=== PATIENT | female | born 1995 | race Caucasian/White ===

== ENCOUNTER → 2017-07-03 | Outpatient (CLI) | payer OTHER ==
--- NOTE | 2017-07-03 11:11 | Diagnostic Imaging Report ---
TECHNIQUE: Multiple real-time grayscale images were obtained over the gravid uterus. COMPARISON: None FINDINGS: There are no prior studies available for comparison. There is a single live fetus in breech presentation. heart motion noted and a rate of 138 bpm was recorded. There were no abnormalities identified. The placenta is posterior and there is no previa. The amniotic fluid volume is within normal limits. The growth parameters are fairly uniform. IMPRESSION: 1. There is a single live fetus approximately 20 weeks 4 days gestation + / - 1.5 weeks. EDC is 11/16/2017. 2. There are no abnormalities identified. 3. The growth parameters are fairly uniform. Biometrical measurements are as follows: Biparietal 4.9 cm, age 21 weeks 0 days. Head circumference 17.9 cm, age 20 weeks 3 days. Abdominal circumference 14.8 cm, age 20 weeks 1 days. Femur length 3.3 cm, age 20 weeks 4 days. Sonographic estimate age: 20 weeks 4 days. Sonographic estimated date of delivery: 11/16/17. Estimated Weight: 345 gm (+/- 50 gm). LMP percentile: 63%. heart rate: 138 beats per minute. number: 1 of 1. Dictated by: Dictated on workstation # [id number]
== END ==
LOC: RAD 10:02
PROVIDERS: ATTEND Obstetrics & Gynecology
DX: Z36.89 Encounter for other specified antenatal screening (principal); Z3A.20 20 weeks gestation of pregnancy
CPT/HCPCS: 76805

== ENCOUNTER 2017-11-23 15:58 | Inpatient (IN) | payer OTHER ==
[~2017-11-23] VITALS: Ht 160 cm; Wt 95.3 kg
[2017-11-23] VITALS (10 sets, daily range): BP systolic 118–149; BP diastolic 67–92
[2017-11-23] MEDS ORDERED: PREN1TAB86 PO (16:28)
[2017-11-23] MEDS ORDERED: NFBIOT1000 PO (16:28)
[2017-11-23] MEDS ORDERED: B6/F1TAB PO (16:28)
[2017-11-23] MEDS ORDERED: D5 LR IV SOLUTION 1,000 ML IV SCH (16:36)
[2017-11-23] MEDS ORDERED: D5 LR IV SOLUTION 1,000 ML IV ONE (16:42)
[2017-11-23 17:18] LABS: BASOPHILS % (AUTO) 0 % (0-10); EOSINOPHILS # (AUTO) 0.2 10^3/uL (0.0-0.3); EOSINOPHILS % (AUTO) 1 % (0-10); HEMATOCRIT 34 % (35-52); HEMOGLOBIN 11.7 G/DL (11.5-16.0); LYMPHOCYTES % (AUTO) 15 % (12-44); MEAN CORPUSCULAR HEMOGLOBIN 27 PG (25-34); MEAN CORPUSCULAR HGB CONC 35 G/DL (32-36); MEAN CORPUSCULAR VOLUME 77 FL (80-99); MEAN PLATELET VOLUME 11.9 FL (7.4-10.4); MONOCYTES % (AUTO) 8 % (0-12); NEUTROPHILS # (AUTO) 10.1 X 10^3 (1.8-7.8); NEUTROPHILS % (AUTO) 76 % (42-75); PLATELET COUNT 241 10^3/uL (130-400); RED BLOOD COUNT 4.36 10^6/uL (4.35-5.85); RED CELL DISTRIBUTION WIDTH 15.3 % (10.0-14.5); WHITE BLOOD COUNT 13.3 10^3/uL (4.3-11.0)
--- NOTE | 2017-11-23 17:29 | History & Physical-OB ---
OB - Chief Complaint & HPI Date/Time Date of Admission: Date of Admission: Nov 23, 2017 at 3:58 pm Time Seen by Provider: 16:00 Chief Complaint/History OB-Reason for Admission/Chief: Induction of Labor Hx : 1 Hx Para: 0 Expected Date of Delivery: Nov 20, 2017 Gestational Age in Weeks: 40 Gestational Age in Days: 3 Indication for induction: post dates Admission Nurse Assessment Rev: Yes History of Labs O neg Antibody neg RI RPR NR HBsAg NR HIV NR GC neg GBS neg Allergies and Home Medications Allergies Coded Allergies: No Known Drug Allergies (Unverified , 11/23/17) Home Medications B6/FA/B12/Co Q10/Herb No.225 1 Each Tablet, 1 EACH PO DAILY, (Reported) Biotin 1,000 Mcg Tablet, 1,000 MCG PO DAILY, (Reported) Vit W-Ca,Fe,FA(<1 mg) 1 Each Tablet, 1 EACH PO DAILY, (Reported) Patient Home Medication List Home Medication List Reviewed: Yes OB - History Hx of Present Care: Yes Ultrasounds: Normal mid trimester US Obstetrical Complications: None Medical Complications: None Patient Past Medical History n/a OB - Admission Exam Physical Exam HEENT: NCAT Heart: Rhythm Normal Lungs: Clear Abdomen: Gravid Extremities: Normal Reflexes: Normal Cervical Dilatation: 1cm Effacement: 50% Station: Ballotable Membranes: Intact Heart Rate: 130's Accelerations: Accelerations Present Decelerations: No Decelerations Short Term Variability: Present Senior Sql Server Database Developer Variability: Average (6-25) Contractions on Admission: < 5 Minutes Apart Intensity: Mild Labs Laboratory Tests Test 11/23/17 16:55 Range/Units White Blood Count 13.3 H 4.3-11.0 10^3/uL Red Blood Count 4.36 4.35-5.85 10^6/uL Hemoglobin 11.7 11.5-16.0 G/DL Hematocrit 34 L 35-52 % Mean Corpuscular Volume 77 L 80-99 FL Mean Corpuscular Hemoglobin 27 25-34 PG Mean Corpuscular Hemoglobin Concent 35 32-36 G/DL Red Cell Distribution Width 15.3 H 10.0-14.5 % Platelet Count 241 130-400 10^3/uL Mean Platelet Volume 11.9 H 7.4-10.4 FL Neutrophils (%) (Auto) 76 H 42-75 % Lymphocytes (%) (Auto) 15 12-44 % Monocytes (%) (Auto) 8 0-12 % Eosinophils (%) (Auto) 1 0-10 % Basophils (%) (Auto) 0 0-10 % Neutrophils # (Auto) 10.1 H 1.8-7.8 X 10^3 Lymphocytes # (Auto) 2.0 1.0-4.0 X 10^3 Monocytes # (Auto) 1.0 0.0-1.0 X 10^3 Eosinophils # (Auto) 0.2 0.0-0.3 10^3/uL Basophils # (Auto) 0.0 0.0-0.1 10^3/uL OB - Assessment/Plan/Diagnosis Assessment Assessment: induction of labor Admission Dx 22 yo @ 40.4 Post dates Unstable lye GBS neg Admission Status: Inpatient Order (span 2 midnights) Reason for Inpatient Admission: Delivery of Plan Plan: Induction Other Plan Will assess for lye and if unstable will consider delivery JOSE ARMANDO CARR DO Nov 23, 2017 5:29 pm
[2017-11-23] MEDS ORDERED: fentaNYL INJECTION 100 MCG/2 ML AMP ONE (17:51)
[2017-11-23] MEDS ORDERED: BUPIVACAINE 0.5% 30 ML (SENSORCAINE) VIAL ONE ×2 (17:52→18:20)
[2017-11-23] MEDS ORDERED: OXYTOCIN/NORMAL SALINE 500 ML IV ONE ×2 (17:55→19:42)
[2017-11-23] MEDS: LACTATED RINGERS 1,000 ML IV SCH ×2 (18:14→18:45)
[2017-11-23] MEDS ORDERED: LIDOCAINE PF 1% 5 ML (XYLOCAINE) AMP ONE (18:20)
[2017-11-23] MEDS ORDERED: ERYTHROMYCIN OPHTH OINT 1 GM (SINGLE USE) TUBE ONE (18:26)
[2017-11-23] MEDS ORDERED: RANITIDINE IV NR ×2 (18:27)
[2017-11-23] MEDS ORDERED: OXYTOCIN/NORMAL SALINE 500 ML IV SCH (18:27)
[2017-11-23] MEDS ORDERED: PETROLATUM JELLY(VASELINE) 2.5 OZ TUBE ONE (18:27)
[2017-11-23] MEDS ORDERED: PHYTONADIONE (VIT. K) NEONATAL 1 MG/0.5 ML AMP ONE (18:27)
[2017-11-23] MEDS ORDERED: NS IV NR ×2 (18:27)
--- NOTE | 2017-11-23 18:29 | Discharge Inst-Women's Service ---
Discharge Inst-Women's Serv Depart Medication/Instructions New, Converted or Re-Newed RX: RX on Chart Consults/Follow Up Additional Follow Up: Yes Activity Activity: Activity as Tolerated Driving Instructions: You May Drive (do not drive while taking hydrocodone) NO SMOKING: NO SMOKING Nothing Inside Vagina: No Douching, No [place], No Tampons Diet Discharge Diet: No Restrictions Symptoms to Report to : Bleeding Excessive, Pain Increased, Fever Over 101 Degrees F, Vaginal Bleeding Increase, Questions/Concerns For Any Problems or Questions: Contact Your Physician Skin/Wound Care Infection Signs and Symptoms: Increased Redness, Foul Odor of Wound, Increased Drainage, Skin Itchy or Has a Rash, Increased Swelling, Temperature Above 101 F Operative Area Clean and Dry: Keep Incision Clean/Dry Stitches/[place]/Dermabond: Dermabond, Care of Stitches Bathing Instructions: JOSE ARMANDO Jett DO Nov 23, 2017 18:29
[2017-11-23] MEDS ORDERED: FAMOTIDINE 20MG/2ML IV (PEPCID) IV ONE (18:30)
[2017-11-23] MEDS ORDERED: METOCLOPRAMIDE INJ 10 MG/2 ML (REGLAN) IV ONE (18:30)
[2017-11-23] MEDS ORDERED: ceFAZolin 2 GM IV Premixed 50 ML IV NR (18:30)
[2017-11-23] MEDS ORDERED: IBUP-844 PO (18:30)
[2017-11-23] MEDS ORDERED: ONDANSETRON 4 MG/2 ML (SDV) Z0FRAN IVP PRN ×2 (18:30→20:00)
[2017-11-23] MEDS ORDERED: TETANUS,DIPTH,PERTUSS P/F (BOOSTRIX) 0.5 ML VIAL IM SCH (18:30)
[2017-11-23] MEDS ORDERED: CITRIC ACID/SOB CIT (BICITRA) 30 ML UDC PO ONE (18:30)
[2017-11-23] MEDS ORDERED: HYDROmorphone 1 MG/ML (DILAUDID) 1 ML SYRINGE IV PRN ×2 (18:30→20:00)
[2017-11-23] MEDS ORDERED: DOCU100C37 PO (18:30)
[2017-11-23] MEDS ORDERED: ACHD5005 PO (18:30)
[2017-11-23] MEDS ORDERED: MEASLES,MUMPS,RUBELLA 1 EA INJ SC SCH (18:30)
[2017-11-23] MEDS ORDERED: ONDANSETRON 4 MG/2 ML (SDV) Z0FRAN ONE (19:33)
[2017-11-23] MEDS ORDERED: PHENYLEPHRINE INJ 10 MG/ML (NEO-SYNEPHRINE 1%) ONE (19:33)
[2017-11-23] MEDS ORDERED: PHENYLEPHRINE 100 MCG/ML 10 ML (ANESTHESIA) SYR ONE (19:47)
[2017-11-23] MEDS ORDERED: fentaNYL INJECTION 100 MCG/2 ML AMP IVP PRN (20:00)
[2017-11-23] MEDS: KETOROLAC 30 MG/ML VIAL IVP SCH (21:57)
[2017-11-23] MEDS: HYDROcodone/APAP 5 MG/325 MG (LORTAB) TAB PO PRN (23:52)
[2017-11-24 02:00] VITALS: BP 133/77
--- NOTE | 2017-11-24 02:16 | OPERATIVE REPORT ---
DATE OF SERVICE: PREOPERATIVE DIAGNOSES: 1. A 22-year-old G1, P0 at 40 weeks and 3 days gestation. 2. Unstable line. 3. GBS positive. POSTOPERATIVE DIAGNOSES: 1. A 22-year-old G1, P0 at 40 weeks and 3 days gestation. 2. Unstable line. 3. GBS positive. PROCEDURE: Primary low transverse section. SURGEON: Milad Carr DO. ANESTHESIA: Spinal. ESTIMATED BLOOD LOSS: 500 mL. URINE OUTPUT: 450 mL clear at the end of the procedure. FLUIDS: 1300 mL lactated Ringer solution. FINDINGS: A live male infant weighing 8 pounds 4 ounces, Apgars of 7 and 9. Grossly normal appearing uterus, bilateral fallopian tubes and ovaries. SPECIMEN SENT: None. INDICATIONS FOR PROCEDURE: This 22-year-old female patient is seen in the office today for postdates. In the office, she was noted to be ariel every 2 to 3 minutes; however, not symptomatic from this. There were a few heart rate decelerations that were variable in nature in the office. Examination at that point showed that the patient remote from delivery. She was 1 cm dilated. There was a palpable hand and movement of parts. The vertex was ballottable. I discussed with the patient the risks of induction versus the risk of and thought that the would be a better choice for her given the fact of an unstable lie at this point. There was no engagement of any part. Risk of was reviewed with the patient in detail including risks of bleeding, infection, damage to surrounding structures including, but not limited to bowel, bladder, ureter, kidneys. Postoperative and preoperative expectations as well as postoperative recovery timeframe and risk to the baby, risk for possible blood transfusion, risk from anesthesia and even . After everything was discussed with the patient, consent was obtained in the preoperative area and the patient was taken to the operating room. OPERATIVE REPORT IN DETAIL: Once in the operating room, spinal anesthesia was found to be adequate. She was placed in the supine position with a leftward tilt, prepped and draped in a normal sterile fashion. Timeout was performed and anesthesia was tested. I then made a Pfannenstiel skin incision with a knife and carried down to the underlying fascia using Bovie cautery. The fascial incision was extended laterally using Bovie cautery. The superior aspect of the fascial incision was then grasped with Christopher clamps, tented upward and dissected off the underlying rectus muscles. The inferior aspect of the fascial incision was then grasped with Christopher clamps, tented up and dissected off the underlying rectus muscles. The rectus muscles were then dissected down the midline using Metzenbaum scissors, which exposed the peritoneum, which entered bluntly and extended using blunt traction. An Andrew ring retractor was placed in the peritoneal incision, which offered excellent lateral sidewall retraction. I identified the lower uterine segment, which was found to be thinned down. I made an incision to the vesicouterine peritoneum and bluntly dissected this off the lower uterine segment. I then proceed with myotomy until membranes were visualized, at which point, I extended the uterine incision laterally and superiorly using bandage scissors. The was found in the vertex presentation. With gentle fundal pressure, I was able to elevate the 's head up to the incision; however, it was difficult to deliver through the size of the incision as well as the rigidity of the rectus muscles. I then placed a Kiwi vacuum extractor on the sagittal suture line of the , applied 500 mmHg suction to the suction cup and with gentle traction on this upward, I am able to deliver the infant's head through the incision. The nares and oropharynx were then bulb suctioned. Anterior and posterior shoulders were delivered and then infant was then brought to the operative field. The cord was doubly clamped and cut and was handed off to awaiting nurses in attendance. Cord blood was collected. Three-vessel cord was intact. Placenta delivered spontaneously thereafter. IV Pitocin was initiated to facilitate uterine contraction. Uterine fundus became firmer with bimanual massage. The uterus was then exteriorized and cleared off all endometrial clots and debris. I then proceeded with closing the uterine incision using 0 Vicryl suture in a running locked fashion. A second layer of imbricating 0 Monocryl was placed. Excellent hemostasis was noted after doing so. I then placed the uterus back in the pelvis and copiously irrigated the pelvis using normal saline. Once again, there was no active bleeding noted from any of my dissection planes. I then placed Interceed antiadhesive on the low transverse incision. I proceeded with closing the peritoneum after removing the Andrew ring retractor using 3-0 Vicryl suture in running fashion. The rectus muscle was reapproximated using 3-0 Vicryl suture in an interrupted fashion. The fascia was reapproximated with 0 Vicryl suture in a running fashion. Subcutaneous tissue was reapproximated using 3-0 plain in an interrupted subcutaneous stitch and the skin was reapproximated using 4-0 Monocryl in a running subcuticular. Dermabond was applied to the incision and a sterile dressing with adhesive white tape. The patient tolerated the procedure well and sent to recovery area in stable condition. Lap and sponge counts were correct at the end of the procedure. Instrument count was correct as well. Two grams of Ancef were given preoperatively for infection prophylaxis. Job ID: [id number] DocumentID: [id number] Dictated Date: 11/23/2017 19:54:44 Catering And Events Manager Date: 11/24/2017 02:15:56 Dictated By: MILAD CARR DO
[2017-11-24] MEDS: DOCUSATE SODIUM 100 MG (COLACE) CAP PO SCH ×3 (02:28→20:56)
[2017-11-24] MEDS: CATHETER FLUSH 10 ML SYR IV SCH ×4 (02:28→10:28)
[2017-11-24] MEDS: KETOROLAC 30 MG/ML VIAL IVP SCH ×3 (04:04→17:13)
[2017-11-24] MEDS: HYDROcodone/APAP 5 MG/325 MG (LORTAB) TAB PO PRN ×3 (04:04→20:56)
[2017-11-24 05:21] LABS: BASOPHILS % (AUTO) 0 % (0-10); EOSINOPHILS # (AUTO) 0.2 10^3/uL (0.0-0.3); EOSINOPHILS % (AUTO) 1 % (0-10); HEMATOCRIT 29 % (35-52); HEMOGLOBIN 10.2 G/DL (11.5-16.0); LYMPHOCYTES # (AUTO) 1.9 X 10^3 (1.0-4.0); LYMPHOCYTES % (AUTO) 15 % (12-44); MEAN CORPUSCULAR HEMOGLOBIN 27 PG (25-34); MEAN CORPUSCULAR HGB CONC 35 G/DL (32-36); MEAN CORPUSCULAR VOLUME 78 FL (80-99); MEAN PLATELET VOLUME 11.4 FL (7.4-10.4); MONOCYTES # (AUTO) 1.1 X 10^3 (0.0-1.0); MONOCYTES % (AUTO) 8 % (0-12); NEUTROPHILS # (AUTO) 9.9 X 10^3 (1.8-7.8); NEUTROPHILS % (AUTO) 76 % (42-75); PLATELET COUNT 194 10^3/uL (130-400); RED BLOOD COUNT 3.75 10^6/uL (4.35-5.85); RED CELL DISTRIBUTION WIDTH 15.2 % (10.0-14.5); WHITE BLOOD COUNT 13.1 10^3/uL (4.3-11.0)
[2017-11-24 06:00] VITALS: BP 128/71
--- NOTE | 2017-11-24 07:27 | Anesthesia-Regional Post-Op ---
Regional Patient Condition Mental Status: Alert, Oriented x3 Circulation: Same as Pre-Op Headache: Absent Sensation: Full Recovery Motor Block: Absent Post Op Complications Complications None Follow Up Care/Instructions Patient Instructions None needed. Anesthesia/Patient Condition Patient is doing well, no complaints, stable vital signs, no apparent adverse anesthesia problems. No complications reported per nursing. ORIN CLAYTON CRNA Nov 24, 2017 07:27
[2017-11-24 08:00] VITALS: BP 112/63
--- NOTE | 2017-11-24 08:33 | Postpartum Progress Note ---
Note Note Day # 1 Subjective: Patient is without complaints. Ambulating, voiding. Tolerating a regular diet without nausea or vomiting. Normal lochia. Pain is well controlled with oral pain medications. Objective: Vital Sign - Last 24 Hours 11/23/17 11/23/17 11/23/17 11/23/17 16:12 16:46 17:00 17:05 Temp 98.6 Pulse 81 76 74 67 Resp 18 18 B/P (MAP) 127/74 (91) 130/85 (100) 120/67 (84) 132/71 (91) Pulse Ox 98 O2 Delivery Room Air Room Air Room Air Room Air 11/23/17 11/23/17 11/23/17 11/23/17 17:15 17:46 18:00 18:17 Temp 97.7 Pulse 70 82 66 64 Resp 18 18 18 18 B/P (MAP) 132/81 (98) 149/91 (110) 143/88 (106) 133/88 (103) Pulse Ox 98 O2 Delivery Room Air Room Air Room Air Room Air 11/23/17 11/23/17 11/23/17 11/24/17 18:46 22:05 23:30 02:00 Temp 98.5 99.1 Pulse 86 64 89 Resp 18 17 17 B/P (MAP) 138/92 (107) 118/72 (87) 133/77 (95) Pulse Ox 95 94 O2 Delivery Room Air Room Air Room Air Room Air 11/24/17 06:00 Temp 98.4 Pulse 78 Resp 17 B/P (MAP) 128/71 (90) Pulse Ox 95 O2 Delivery Room Air Intake and Output 11/23/17 11/23/17 11/24/17 15:00 23:00 07:00 Intake Total 1300 ml 1000 ml Output Total 1450 ml 1400 ml Balance -150 ml -400 ml Physical Exam: General - Alert and oriented, no apparent distress Abdomen - Soft, appropriately tender to palpation, non-distended, fundus firm at umbilicus Extremities - no edema, negative Margoth's bilaterally Incision- c/d/i Assessment: POD 1 PLTCS Acute blood loss anemia Plan: Routine care. Encourage breast feeding. Encourage ambulation. Ferrous sulfate supplementation. Plan for discharge tomorrow Vitals - Labs Vital Signs - I&O Vital Signs Date Time Temp Pulse Resp B/P (MAP) Pulse Ox O2 Delivery O2 Flow Rate FiO2 11/24/17 06:00 98.4 78 17 128/71 (90) 95 Room Air 11/24/17 02:00 99.1 89 17 133/77 (95) 94 Room Air 11/23/17 23:30 Room Air 11/23/17 22:05 98.5 64 17 118/72 (87) 95 Room Air 11/23/17 18:46 86 18 138/92 (107) Room Air 11/23/17 18:17 64 18 133/88 (103) Room Air 11/23/17 18:00 66 18 143/88 (106) Room Air 11/23/17 17:46 82 18 149/91 (110) Room Air 11/23/17 17:15 97.7 70 18 132/81 (98) 98 Room Air 11/23/17 17:05 67 18 132/71 (91) Room Air 11/23/17 17:00 74 18 120/67 (84) Room Air 11/23/17 16:46 76 18 130/85 (100) Room Air 11/23/17 16:12 98.6 81 18 127/74 (91) 98 Room Air I & O 11/24/17 07:00 Intake Total 2300 ml Output Total 2850 ml Balance -550 ml Labs Laboratory Tests 11/23/17 16:55: White Blood Count 13.3H, Red Blood Count 4.36, Hemoglobin 11.7, Hematocrit 34L, Mean Corpuscular Volume 77L, Mean Corpuscular Hemoglobin 27, Mean Corpuscular Hemoglobin Concent 35, Red Cell Distribution Width 15.3H, Platelet Count 241, Mean Platelet Volume 11.9H, Neutrophils (%) (Auto) 76H, Lymphocytes (%) (Auto) 15, Monocytes (%) (Auto) 8, Eosinophils (%) (Auto) 1, Basophils (%) (Auto) 0, Neutrophils # (Auto) 10.1H, Lymphocytes # (Auto) 2.0, Monocytes # (Auto) 1.0, Eosinophils # (Auto) 0.2, Basophils # (Auto) 0.0 11/24/17 05:15: White Blood Count 13.1H, Red Blood Count 3.75L, Hemoglobin 10.2L, Hematocrit 29L , Mean Corpuscular Volume 78L, Mean Corpuscular Hemoglobin 27, Mean Corpuscular Hemoglobin Concent 35, Red Cell Distribution Width 15.2H, Platelet Count 194, Mean Platelet Volume 11.4H, Neutrophils (%) (Auto) 76H, Lymphocytes (%) (Auto) 15, Monocytes (%) (Auto) 8, Eosinophils (%) (Auto) 1, Basophils (%) (Auto) 0, Neutrophils # (Auto) 9.9H, Lymphocytes # (Auto) 1.9, Monocytes # (Auto) 1.1H, Eosinophils # (Auto) 0.2, Basophils # (Auto) 0.0 JOSE ARMANDO CARR DO Nov 24, 2017 8:33 am
[2017-11-24 12:00] VITALS: BP 123/77
[2017-11-24 17:00] VITALS: BP 124/79
[2017-11-24] MEDS ORDERED: KETOROLAC 30 MG/ML VIAL ONE (17:05)
[2017-11-24 20:00] VITALS: BP 132/88
[2017-11-24] MEDS: IBUPROFEN 600 MG (MOTRIN) TAB PO SCH (23:52)
[2017-11-25 02:32] VITALS: BP 119/70
[2017-11-25] MEDS: IBUPROFEN 600 MG (MOTRIN) TAB PO SCH ×4 (05:09→18:09)
[2017-11-25] MEDS: HYDROcodone/APAP 5 MG/325 MG (LORTAB) TAB PO PRN ×2 (05:09→15:10)
--- NOTE | 2017-11-25 07:46 | Progress Note-Standard ---
Standard Progress Note Progress Notes/Assess & Plan Date Seen by Provider: Nov 25, 2017 Time Seen by Provider: 07:45 Progress/Assessment & Plan This patient is without complaint. She is ambulating, voiding, tolerating by mouth well, has good pain control. Patient denies chest pain, denies shortness of breath, denies nausea vomiting, and denies headache. Patient feels ready for discharge home. Vital Signs 11/25/17 02:32 Temp 97.9 Pulse 79 Resp 18 B/P (MAP) 119/70 (86) Pulse Ox 99 O2 Delivery Room Air Vital signs are stable. Patient is afebrile. Fundus is firm below the umbilicus nontender. The incision is clean dry and intact per report Extreme show no clubbing cyanosis. There is no Homans sign. Assessment and plan day number 2 status post delivery doing well. Plan is for discharge home with follow-up in clinic CAITIE COUGHLIN MD Nov 25, 2017 7:46 am
[2017-11-25] MEDS: DOCUSATE SODIUM 100 MG (COLACE) CAP PO SCH (10:11)
[2017-11-25 10:17] VITALS: BP 140/86
[2017-11-25 16:13] VITALS: BP 129/81
== END 2017-11-25 20:45 | disposition home or self-care (01) | DRG 765 ==
LOC: LDRP 15:58
PROVIDERS: ADMIT Obstetrics & Gynecology; ATTEND Obstetrics & Gynecology
PROC: 10D00Z1 Extraction of Products of Conception, Low, Open Approach (ICD-10-PCS; principal; 2017-11-23 18:53)
DX: O48.0 Post-term pregnancy (principal); O99.824 Streptococcus B carrier state complicating childbirth; O32.0XX0 Maternal care for unstable lie, not applicable or unspecified; O90.81 Anemia of the puerperium; D62 Acute posthemorrhagic anemia; Z3A.40 40 weeks gestation of pregnancy; Z37.0 Single live birth
CPT/HCPCS: 36415; 85025; 86850; 86900; 86901; 87081; 94664

== ENCOUNTER 2018-02-18 14:23 | Emergency (ER) | payer OTHER ==
[~2018-02-18] VITALS: Ht 160 cm; Wt 76.2 kg
[~2018-02-18 14:23] MED LIST: ACHD5005 PO; B6/F1TAB PO; DOCU100C37 PO; IBUP-844 PO; NFBIOT1000 PO; PREN1TAB86 PO
[2018-02-18 14:52] LABS: BILIRUBIN,URINE NEGATIVE (NEGATIVE); CLARITY,URINE CLEAR; COLOR,URINE YELLOW; GLUCOSE, URINE (UA) NEGATIVE (NEGATIVE); KETONES,URINE 2+ (NEGATIVE); LEUKOCYTE ESTERASE ,URINE 1+ (NEGATIVE); NITRITE,URINE NEGATIVE (NEGATIVE); PH,URINE 7 (5-9); PROTEIN,URINE NEGATIVE (NEGATIVE); UROBILINOGEN,URINE NORMAL (NORMAL)
--- NOTE | 2018-02-18 14:56 | ED Abdominal Pain ---
General Chief Complaint: Abdominal/GI Problems Stated Complaint: ABD PAIN/FEVER Source of Information: Patient Exam Limitations: No Limitations History of Present Illness Date Seen by Provider: Feb 18, 2018 Time Seen by Provider: 14:54 Initial Comments To ER per private vehicle from [facility] with reports of abdominal pain and fever. She states that this fever began today, the abdominal pain began 3 days ago in the right upper abdomen. Pain is worsened by deep breathing she does have associated nausea without vomiting. Food does not affect her pain. She did have a done at the end of October and is currently breast-feeding. Upon arrival to ER she has a temperature of 101. She does have some right breast redness without tenderness or drainage that started today (she is breast feeding), however her abdominal pain started 3 days ago RUQ and is now diffuse Timing/Duration: 1-2 Days Severity/Quality: Moderate Location: Generalized Abdomen Modifying Factors: Worsens With Urinating, Worsens With Vomiting Associated Symptoms: Fever/Chills, Nausea/Vomiting Allergies and Home Medications Allergies Coded Allergies: No Known Drug Allergies (Unverified , 11/23/17) Home Medications B6/FA/B12/Co Q10/Herb No.225 1 Each Tablet, 1 EACH PO DAILY, (Reported) Biotin 1,000 Mcg Tablet, 1,000 MCG PO DAILY, (Reported) Docusate Sodium 100 Mg Capsule, 100 MG PO BID PRN for CONSTIPATION-1ST LINE Prescribed by: JOSE ARMANDO CARR on 11/23/171829 Hydrocodone Bit/Acetaminophen 1 Tab Tab, 1-2 TAB PO Q4H PRN for PAIN-MODERATE Prescribed by: JOSE ARMANDO CARR on 11/23/171829 Ibuprofen 600 Mg Tablet, 600 MG PO Q6H Prescribed by: JOSE ARMNADO CARR on 11/23/171829 Vit W-Ca,Fe,FA(<1 mg) 1 Each Tablet, 1 EACH PO DAILY, (Reported) Patient Home Medication List Home Medication List Reviewed: Yes Review of Systems Review of Systems Constitutional: see HPI, chills, fever EENTM: No Symptoms Reported Respiratory: No Symptoms Reported Cardiovascular: No Symptoms Reported Gastrointestinal: See HPI, Abdominal Pain; Denies Constipated, Denies Diarrhea ; Nausea; Denies Vomiting Genitourinary: No Symptoms Reported Musculoskeletal: no symptoms reported Skin: no symptoms reported Psychiatric/Neurological: No Symptoms Reported Endocrine: No Symptoms Reported Hematologic/Lymphatic: No Symptoms Reported Past Atchpea-Peomhy-Ilcdbc Hx Patient Social History Recent Foreign Travel: No Contact w/Someone Who Travel: No Recent Hopitalizations: No Immunizations Up To Date PED Vaccines UTD: Yes Seasonal Allergies Seasonal Allergies: No Past Medical History Surgeries: Yes (WISDOM TEETH 04/2016) Respiratory: No Cardiac: No Neurological: No Female Reproductive Disorders: Denies Sexually Transmitted Disease: No HIV/AIDS: No Genitourinary: No Gastrointestinal: No Musculoskeletal: No Endocrine: No HEENT: No Loss of Vision: Denies Hearing Impairment: Denies Cancer: No Psychosocial: No Integumentary: No Blood Disorders: No Adverse Reaction/Blood Tranf: No Family Medical History Diabetes mellitus 19 MOTHER Physical Exam Vital Signs Vital Signs - First Documented 02/18/18 14:25 Temp 101.3 Pulse 108 Resp 16 B/P (MAP) 149/90 (109) Pulse Ox 100 O2 Delivery Room Air Capillary Refill : Height/Weight/BMI Height: 5'3.00" Weight: 210lbs. 0.0oz. 95.755567ob; 37.2 BMI Method: General Appearance: WD/WN, no apparent distress HEENT: PERRL/EOMI, normal ENT inspection Neck: non-tender, full range of motion Respiratory: no respiratory distress, no accessory muscle use Cardiovascular: no murmur, tachycardia Gastrointestinal: normal bowel sounds, soft; No guarding, No rebound; tenderness (diffuse) Extremities: normal range of motion, non-tender Neurologic/Psychiatric: alert, normal mood/affect, oriented x 3 Skin: normal color, warm/dry Focused Exam Lactate Level 02/18/18 15:52: Lactic Acid Level 0.65 Lactic Acid Level Laboratory Tests Test 02/18/18 15:52 Lactic Acid Level 0.65 MMOL/L (0.50-2.00) Progress/Results/Core Measures Results/Orders Lab Results Laboratory Tests Test 02/18/18 14:45 02/18/18 15:52 02/18/18 16:05 Range/Units White Blood Count 15.2 H 4.3-11.0 10^3/uL Red Blood Count 5.25 4.35-5.85 10^6/uL Hemoglobin 13.4 11.5-16.0 G/DL Hematocrit 39 35-52 % Mean Corpuscular Volume 75 L 80-99 FL Mean Corpuscular Hemoglobin 26 25-34 PG Mean Corpuscular Hemoglobin Concent 34 32-36 G/DL Red Cell Distribution Width 14.7 H 10.0-14.5 % Platelet Count 356 130-400 10^3/uL Mean Platelet Volume 10.0 7.4-10.4 FL Neutrophils (%) (Auto) 85 H 42-75 % Lymphocytes (%) (Auto) 8 L 12-44 % Monocytes (%) (Auto) 7 0-12 % Eosinophils (%) (Auto) 1 0-10 % Basophils (%) (Auto) 0 0-10 % Neutrophils # (Auto) 12.8 H 1.8-7.8 X 10^3 Lymphocytes # (Auto) 1.2 1.0-4.0 X 10^3 Monocytes # (Auto) 1.0 0.0-1.0 X 10^3 Eosinophils # (Auto) 0.1 0.0-0.3 10^3/uL Basophils # (Auto) 0.0 0.0-0.1 10^3/uL Neutrophils % (Manual) 81 % Lymphocytes % (Manual) 4 % Monocytes % (Manual) 5 % Eosinophils % (Manual) 0 % Basophils % (Manual) 0 % Band Neutrophils 5 % Reactive Lymphocytes 5 % Poikilocytosis SLIGHT Anisocytosis SLIGHT Microcytosis MODERATE Elliptocytes SLIGHT Urine Color YELLOW Urine Clarity CLEAR Urine pH 7 5-9 Urine Specific [place] 1.005 L 1.016-1.022 Urine Protein NEGATIVE NEGATIVE Urine Glucose (UA) NEGATIVE NEGATIVE Urine Ketones 2+ H NEGATIVE Urine Nitrite NEGATIVE NEGATIVE Urine Bilirubin NEGATIVE NEGATIVE Urine Urobilinogen NORMAL NORMAL MG/DL Urine Leukocyte Esterase 1+ H NEGATIVE Urine RBC (Auto) NEGATIVE NEGATIVE Urine RBC 0-2 /HPF Urine WBC 0-2 /HPF Urine Squamous Epithelial Cells 0-2 /HPF Urine Crystals NONE /LPF Urine Bacteria FEW H /HPF Urine Casts NONE /LPF Urine Mucus NEGATIVE /LPF Urine Culture Indicated NO Sodium Level 137 135-145 MMOL/L Potassium Level 3.8 3.6-5.0 MMOL/L Chloride Level 103 98-107 MMOL/L Carbon Dioxide Level 24 21-32 MMOL/L Anion Gap 10 5-14 MMOL/L Blood Urea Nitrogen 12 7-18 MG/DL Creatinine 0.88 0.60-1.30 MG/DL Estimat Glomerular Filtration Rate > 60 BUN/Creatinine Ratio 14 Glucose Level 92 70-105 MG/DL Calcium Level 9.9 8.5-10.1 MG/DL Corrected Calcium 8.5-10.1 MG/DL Total Bilirubin 0.7 0.1-1.0 MG/DL Aspartate Amino Transf (AST/SGOT) 33 5-34 U/L Alanine Aminotransferase (ALT/SGPT) 40 0-55 U/L Alkaline Phosphatase 89 40-136 U/L Total Protein 8.3 H 6.4-8.2 GM/DL Albumin 4.9 H 3.2-4.5 GM/DL Lactic Acid Level 0.65 0.50-2.00 MMOL/L Micro Results Microbiology 02/18/18 Genital Culture, Resulted Pending 02/18/18 Wet Prep - Final, Resulted My Orders Orders - BANDAR WILLIS APRN Cbc With Automated Diff (02/18/18 14:43) Comprehensive Metabolic Panel (02/18/18 14:43) Ua Culture If Indicated (02/18/18 14:43) Urine Bedside (02/18/18 14:43) Iv Heplock-Insert (Order) (02/18/18 14:43) Ct Abd/Pelv W (Appendicitis) (02/18/18 14:43) Acetaminophen Tablet (Tylenol Tablet) (02/18/18 15:00) Ibuprofen Tablet (Motrin Tablet) (02/18/18 15:00) Ns Iv 1000 Ml (Sodium Chloride 0.9%) (02/18/18 15:00) Ondansetron Injection (Zofran Injectio (02/18/18 15:00) Manual Differential (02/18/18 14:45) Iohexol Injection (Omnipaque 350 Mg/Ml 1 (02/18/18 15:15) Ns (Ivpb) (Sodium Chloride 0.9%) (02/18/18 15:15) Blood Culture (02/18/18 15:36) Lactic Acid Analyzer (02/18/18 15:36) Wet Prep (02/18/18 15:58) Neisseria Gonorrhea Swab (02/18/18 15:58) Genital Culture (02/18/18 15:58) Chlamydia Trachomatis Swab (02/18/18 15:58) Ceftriaxone For Iv Use (Rocephin For I (02/18/18 16:30) Medications Given in ED Current Medications Medications Dose Ordered Sig/Jean Route Start Time Stop Time Status Last Admin Dose Admin Acetaminophen 1,000 mg ONCE ONCE PO 02/18/18 15:00 02/18/18 15:01 DC 02/18/18 15:05 1,000 MG Ibuprofen 800 mg ONCE ONCE PO 02/18/18 15:00 02/18/18 15:01 DC 02/18/18 15:05 800 MG Iohexol 100 ml ONCE ONCE IV 02/18/18 15:15 02/18/18 15:17 DC 02/18/18 15:23 100 ML Ondansetron HCl 4 mg ONCE ONCE IVP 02/18/18 15:00 02/18/18 15:01 DC 02/18/18 15:06 4 MG Sodium Chloride 250 ml ONCE ONCE IV 02/18/18 15:15 02/18/18 15:17 DC 02/18/18 15:24 80 ML Vital Signs/I&O 02/18/18 14:25 Temp 101.3 Pulse 108 Resp 16 B/P (MAP) 149/90 (109) Pulse Ox 100 O2 Delivery Room Air Diagnostic Imaging Diagonstic Imaging: Xray Comments NAME: JENNIFER CALDERON [facility] REC#: [id number] PT STATUS: REG ER : 1995 PHYSICIAN: BANDAR WILLIS CANINE ENFORCEMENT OFFICER ADMIT DATE: 02/18/18/ER Draft Date of Exam:02/18/18 CT ABD/PELV W (APPENDICITIS) PROCEDURE: CT abdomen and pelvis with contrast, rule out appendicitis. TECHNIQUE: Multiple contiguous axial images were obtained through the abdomen and pelvis after the administration of intravenous contrast. INDICATION: Right upper quadrant pain and nausea for three days. FINDINGS: The liver, gallbladder and bile ducts are normal. The spleen, pancreas and adrenals are normal. The kidneys, ureters and bladder are normal. There is an IUD in the uterus. There is no pelvic mass. No bowel abnormality is seen. There is no free intraperitoneal air or fluid. IMPRESSION: No acute abnormality is seen. Dictated on workstation # [id number] Dict: 02/18/18 1537 Trans: 02/18/18 1541 [facility] [id number] Interpreted by: ARELI BURROUGHS MD Electronically signed by: Departure Communication (Admissions) Family Conversation 1607-the pelvic exam was done with Debi YOUSSEF at the bedside. The patient had removed her only tampon. No additional older tampons were seen. Strings to the IUD are in place at the cervix, the cervix is without erythema/friability, discharge or cervical motion tenderness. 1633- On further discussion with patient and significant other, she would prefer to go home and be with her child. She can breast-feed safely without pumping and dumping, we'll do a dose of Rocephin IV here and I'll prescribe Augmentin in the outpatient setting. She will follow up with Dr. CARR calling his office tomorrow morning and she assures me that she'll return to ER for any worsening symptoms. 1552-CT is unremarkable for acute pathology. She does have a tampon in the vaginal vault, I questioned her about this and she states she did just place this this morning. She's had some intermittent vaginal bleeding since delivery at the end of October. She does have an IUD. At this time we do not have a source of infection so we'll proceed with pelvic exam and swabs. Spoke with Dr. Syed, we'll admit for IV Rocephin treating for mastitis given the right breast erythema/lymphangitis and right axillary tenderness. Impression Primary Impression: Febrile illness Additional Impressions: Abdominal pain Mastitis Disposition: ADMITTED INPATIENT Condition: Stable Admissions Decision to Admit Reason: Admit from ER (General) Decision to Admit/Date: Feb 18, 2018 Time/Decision to Admit Time: 16:08 Departure-Patient Inst. Decision time for Depature: 16:34 Referrals: JOSE ARMANDO CARR,LOCAL PHYSICIAN (PCP) Primary Care Physician Patient Instructions: Mastitis Add. Discharge Instructions: 1. Tylenol and Motrin for pain and fever control 2. Drink plenty of fluids 3. You may breast-feed safely as soon as you would like 3. Return to ER for any fevers that are not controlled by Tylenol and Motrin, worsening abdominal pain or other concerns. Take antibiotics as directed starting tomorrow. Take these with food because they may upset her stomach. All discharge instructions reviewed with patient and/or family. Voiced understanding. Scripts Ondansetron (Zofran Odt) 8 Mg Tab.rapdis 8 MG PO Q6H PRN for NAUSEA/VOMITING-1ST LINE, #10 TAB Prov: BANDAR WILLIS APRN 02/18/18 Amoxicillin/Potassium Clav (Augmentin 875-125 Tablet) 1 Each Tablet 1 EACH PO BID, #14 TAB Prov: BANDAR WILLIS APRN 02/18/18 Copy Copies To 1: JOSE ARMANDO CARR PETER J APRN Feb 18, 2018 14:56
[2018-02-18 14:59] LABS: BASOPHILS % (AUTO) 0 % (0-10); EOSINOPHILS # (AUTO) 0.1 10^3/uL (0.0-0.3); EOSINOPHILS % (AUTO) 1 % (0-10); HEMATOCRIT 39 % (35-52); HEMOGLOBIN 13.4 G/DL (11.5-16.0); LYMPHOCYTES # (AUTO) 1.2 X 10^3 (1.0-4.0); LYMPHOCYTES % (AUTO) 8 % (12-44); MEAN CORPUSCULAR HEMOGLOBIN 26 PG (25-34); MEAN CORPUSCULAR HGB CONC 34 G/DL (32-36); MEAN CORPUSCULAR VOLUME 75 FL (80-99); MONOCYTES % (AUTO) 7 % (0-12); NEUTROPHILS # (AUTO) 12.8 X 10^3 (1.8-7.8); NEUTROPHILS % (AUTO) 85 % (42-75); PLATELET COUNT 356 10^3/uL (130-400); RED BLOOD COUNT 5.25 10^6/uL (4.35-5.85); RED CELL DISTRIBUTION WIDTH 14.7 % (10.0-14.5); WHITE BLOOD COUNT 15.2 10^3/uL (4.3-11.0)
[2018-02-18] MEDS ORDERED: ONDANSETRON 4 MG/2 ML (SDV) Z0FRAN IVP ONE (15:00)
[2018-02-18] MEDS ORDERED: NS IV 1000 ML 1,000 ML IV SCH (15:00)
[2018-02-18] MEDS ORDERED: ACETAMINOPHEN 500 MG TAB (TYLENOL) PO ONE (15:00)
[2018-02-18] MEDS ORDERED: IBUPROFEN 800 MG (MOTRIN) TAB PO ONE (15:00)
[2018-02-18] MEDS ORDERED: NS 250 ML (IVPB) BAG IV ONE (15:15)
[2018-02-18] MEDS ORDERED: IOHEXOL 350 MG/ML 100 ML (OMNIPAQUE 350) VIAL IV ONE (15:15)
[2018-02-18 15:18] LABS: ALANINE AMINOTRANSFERASE 40 U/L (0-55); ALBUMIN 4.9 GM/DL (3.2-4.5); ALKALINE PHOSPHATASE 89 U/L (40-136); BILIRUBIN,TOTAL 0.7 MG/DL (0.1-1.0); BUN/CREATININE RATIO 14; CALCIUM 9.9 MG/DL (8.5-10.1); CARBON DIOXIDE 24 MMOL/L (21-32); CHLORIDE 103 MMOL/L (98-107); CREATININE SERUM 0.88 MG/DL (0.60-1.30); GFR ESTIMATED > 60; GLUCOSE 92 MG/DL (70-105); POTASSIUM 3.8 MMOL/L (3.6-5.0); SODIUM 137 MMOL/L (135-145); TOTAL PROTEIN 8.3 GM/DL (6.4-8.2)
[2018-02-18 15:19] LABS: RBC,URINE 0-2 /HPF; WBC,URINE 0-2 /HPF
[2018-02-18 15:20] LABS: BACTERIA,URINE FEW /HPF; SQUAMOUS EPITHELIAL CELL,UR 0-2 /HPF
[2018-02-18 15:25] LABS: BAND NEUTROPHILS 5 %; BASOPHILS % (MANUAL) 0 %; EOSINOPHILS % (MANUAL) 0 %; LYMPHOCYTES % (MANUAL) 4 %; MONOCYTES % (MANUAL) 5 %; NEUTROPHILS % (MANUAL) 81 %; REACTIVE LYMPHOCYTES 5 %
[2018-02-18 15:26] LABS: ANISOCYTOSIS SLIGHT; ELLIPT/OVALOCYTES SLIGHT; MICROCYTOSIS MODERATE; POIKILOCYTOSIS SLIGHT
--- NOTE | 2018-02-18 15:41 | Diagnostic Imaging Report ---
PROCEDURE: CT abdomen and pelvis with contrast, rule out appendicitis. TECHNIQUE: Multiple contiguous axial images were obtained through the abdomen and pelvis after the administration of intravenous contrast. INDICATION: Right upper quadrant pain and nausea for three days. FINDINGS: The liver, gallbladder and bile ducts are normal. The spleen, pancreas and adrenals are normal. The kidneys, ureters and bladder are normal. There is an IUD in the uterus. There is no pelvic mass. No bowel abnormality is seen. There is no free intraperitoneal air or fluid. IMPRESSION: No acute abnormality is seen. Dictated by: Dictated on workstation # [id number]
[2018-02-18] MEDS ORDERED: cefTRIAXone FOR IV USE 1,000 MG in NS (IVPB) 50 ML IV ONE (16:30)
[2018-02-18] MEDS ORDERED: AMOX-358 PO (16:35)
[2018-02-18] MEDS ORDERED: ONDA8TAB9 PO (16:35)
[2018-02-18 17:23] VITALS: BP 102/81
== END 2018-02-18 17:23 | disposition other institution (70) ==
LOC: EDUNIT# 14:23 → ER 14:24
DX: N61.0 Mastitis without abscess (principal); R10.11 Right upper quadrant pain; Z98.890 Other specified postprocedural states
CPT/HCPCS: 36415; 74177; 80053; 81000; 83605; 84703; 85007; 85027; 87040; 87070; 87077; 87210; 87491; 87591; 96361; 96365; 96375

== ENCOUNTER 2018-12-08 14:28 | Emergency (ER) | payer OTHER ==
[~2018-12-08] VITALS: Ht 160 cm; Wt 77.1 kg
[~2018-12-08 14:28] MED LIST changes: +AMOX-358 PO; +ONDA8TAB9 PO
--- NOTE | 2018-12-08 14:50 | ED Abdominal Pain ---
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 ALSO STATES INTERCOURSE IS VERY PAINFUL. Sepsis Screen: No Definite Risk Source of Information: Patient Exam Limitations: No Limitations History of Present Illness Date Seen by Provider: Dec 08, 2018 Time Seen by Provider: 14:46 Initial Comments To ER per EMS with reports of lower abdominal pain intermittently, vaginal bleeding and painful intercourse. This began about 3 weeks ago. She states that she was given an IUD in December of last year by Dr. CARR has had no troubles, occasionally would have some bleeding after intercourse but it was never painful and that resolved shortly after it began. However she was having sexual interco urse about 3 weeks ago with her boyfriend when she noticed intense pain to the point that she had to stop intercourse, the bleeding and pain has persisted. She's been using about 4 tampons per day Timing/Duration: Getting Worse Severity/Quality: Moderate Radiation: No Radiation Activities at Onset: None Associated Symptoms: Denies Symptoms Allergies and Home Medications Allergies Coded Allergies: No Known Drug Allergies (Unverified , 11/23/17) Home Medications Amoxicillin/Potassium Clav 1 Each Tablet, 1 EACH PO BID Prescribed by: BANDAR WILLIS on 02/18/18 1635 B6/FA/B12/Co Q10/Herb No.225 1 Each Tablet, 1 EACH PO DAILY, (Reported) Biotin 1,000 Mcg Tablet, 1,000 MCG PO DAILY, (Reported) Docusate Sodium 100 Mg Capsule, 100 MG PO BID PRN for CONSTIPATION-1ST LINE Prescribed by: JOSE ARMANDO CARR on 11/23/171829 Doxycycline Hyclate 100 Mg Tablet, 100 MG PO BID Prescribed by: BANDAR WILLIS on 12/08/18 1617 Hydrocodone Bit/Acetaminophen 1 Tab Tab, 1-2 TAB PO Q4H PRN for PAIN-MODERATE Prescribed by: JOSE ARMANDO CARR on 11/23/17 183 Ibuprofen 600 Mg Tablet, 600 MG PO Q6H Prescribed by: JOSE ARMANDO CARR on 11/23/171829 Ondansetron 8 Mg Tab.rapdis, 8 MG PO Q6H PRN for NAUSEA/VOMITING-1ST LINE Prescribed by: BANDAR WILLIS on 02/18/18 1635 Vit W-Ca,Fe,FA(<1 mg) 1 Each Tablet, 1 EACH PO DAILY, (Reported) Patient Home Medication List Home Medication List Reviewed: Yes Review of Systems Review of Systems Constitutional: see HPI EENTM: No Symptoms Reported Respiratory: No Symptoms Reported Cardiovascular: No Symptoms Reported Gastrointestinal: No Symptoms Reported Genitourinary: See HPI Musculoskeletal: no symptoms reported Psychiatric/Neurological: No Symptoms Reported Endocrine: No Symptoms Reported Hematologic/Lymphatic: No Symptoms Reported Past Rfohoej-Tybima-Dsvlwb Hx Patient Social History Alcohol Use: Denies Use Recreational Drug Use: No Recent Foreign Travel: No Contact w/Someone Who Travel: No Recent Infectious Disease Expo: No Recent Hopitalizations: No Physical Abuse: No Sexual Abuse: No Mistreated: No Immunizations Up To Date PED Vaccines UTD: Yes Seasonal Allergies Seasonal Allergies: No Past Medical History Surgeries: Yes (WISDOM TEETH 04/2016) Respiratory: No Cardiac: No Neurological: No Female Reproductive Disorders: Denies 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 0.0oz. 77.831411hz; 29.8 BMI Method:Stated General Appearance: WD/WN, no apparent distress HEENT: PERRL/EOMI Respiratory: no respiratory distress, no accessory muscle use Gastrointestinal: normal bowel sounds, soft, tenderness Extremities: normal range of motion, non-tender Pelvic: other (exam done with DOMONIQUE Marin at the bedside. There is no cervical motion tenderness, there is a bit of blood coming from the cervical os, strings from the IUD are seen extending from the cervical os. No intravaginal foreign bodies or lacerations are identified.) Neurologic/Psychiatric: alert, normal mood/affect, oriented x 3 Skin: normal color, warm/dry Progress/Results/Core Measures Results/Orders Lab Results Laboratory Tests Test 12/08/18 14:47 12/08/18 14:48 12/08/18 15:56 Range/Units White Blood Count 8.9 4.3-11.0 10^3/uL Red Blood Count 5.21 4.35-5.85 10^6/uL Hemoglobin 14.2 11.5-16.0 G/DL Hematocrit 41 35-52 % Mean Corpuscular Volume 78 L 80-99 FL Mean Corpuscular Hemoglobin 27 25-34 PG Mean Corpuscular Hemoglobin Concent 35 32-36 G/DL Red Cell Distribution Width 13.0 10.0-14.5 % Platelet Count 316 130-400 10^3/uL Mean Platelet Volume 10.0 7.4-10.4 FL Neutrophils (%) (Auto) 60 42-75 % Lymphocytes (%) (Auto) 29 12-44 % Monocytes (%) (Auto) 9 0-12 % Eosinophils (%) (Auto) 2 0-10 % Basophils (%) (Auto) 0 0-10 % Neutrophils # (Auto) 5.3 1.8-7.8 X 10^3 Lymphocytes # (Auto) 2.6 1.0-4.0 X 10^3 Monocytes # (Auto) 0.8 0.0-1.0 X 10^3 Eosinophils # (Auto) 0.2 0.0-0.3 10^3/uL Basophils # (Auto) 0.0 0.0-0.1 10^3/uL Urine Color YELLOW Urine Clarity CLEAR Urine pH 5 5-9 Urine Specific [place] 1.010 L 1.016-1.022 Urine Protein NEGATIVE NEGATIVE Urine Glucose (UA) NEGATIVE NEGATIVE Urine Ketones NEGATIVE NEGATIVE Urine Nitrite NEGATIVE NEGATIVE Urine Bilirubin NEGATIVE NEGATIVE Urine Urobilinogen NORMAL NORMAL MG/DL Urine Leukocyte Esterase NEGATIVE NEGATIVE Urine RBC (Auto) 5+ H NEGATIVE Urine RBC 25-50 H /HPF Urine WBC NONE /HPF Urine Squamous Epithelial Cells RARE /HPF Urine Crystals NONE /LPF Urine Bacteria TRACE /HPF Urine Casts NONE /LPF Urine Mucus SMALL H /LPF Urine Culture Indicated NO Urine Test NEGATIVE NEGATIVE My Orders Orders - BANDAR WILLIS FUR COMBER Cbc With Automated Diff (12/08/18 14:36) Ua Culture If Indicated (12/08/18 14:36) Hcg,Qualitative Urine (12/08/18 14:36) Wet Prep (12/08/18 14:36) Neisseria Gonorrhea Swab (12/08/18 14:36) Genital Culture (12/08/18 14:36) Chlamydia Trachomatis Swab (12/08/18 14:36) Ed Iv/Invasive Line Start (12/08/18 14:36) Ct Abdomen/Pelvis W (12/08/18 14:46) Iohexol Injection (Omnipaque 350 Mg/Ml 1 (12/08/18 15:00) Received Contrast (Hold Metformin- Contr (12/08/18 15:00) Ns (Ivpb) (Sodium Chloride 0.9% Ivpb Bag (12/08/18 15:00) Medications Given in ED Current Medications Medications Dose Ordered Sig/Jean Route Start Time Stop Time Status Last Admin Dose Admin Iohexol 100 ml ONCE ONCE IV 12/08/18 15:00 12/08/18 15:01 DC 12/08/18 15:40 100 ML Sodium Chloride 100 ml ONCE ONCE IV 12/08/18 15:00 12/08/18 15:01 DC 12/08/18 15:40 80 ML Vital Signs/I&O 12/08/18 12/08/18 14:33 16:32 Temp 98.1 98.1 Pulse 55 55 Resp 16 16 B/P (MAP) 129/80 (96) 129/80 (96) Pulse Ox 99 99 O2 Delivery Room Air Blood Pressure Mean: 96 Departure Communication (Admissions) Spoke with Dr. Trimble, states that if the IUD is too close to the cervical os this can result in some painful intercourse and bleeding, sometimes he needs to be advanced. Dr. CARR would be able to tell that with ultrasound in his clinic. Patient should call on Monday. She states that she has been unable to see him because her insurance through the will not cover it unless there is a referral so I will write a referral I'm unsure whether they will approve that since this coming from the emergency room. Dr. Trimble would also recommend covering for cervicitis with doxycycline for one week. Impression Primary Impression: Dyspareunia Additional Impression: Vaginal bleeding Disposition: HOME, SELF-CARE Condition: Improved Departure-Patient Inst. Decision time for Depature: 16:14 Referrals: NO,LOCAL PHYSICIAN (PCP/Family) Primary Care Physician Patient Instructions: Dyspareunia (Painful Sex) Add. Discharge Instructions: 1. Take antibiotics as directed. In the meantime avoid intercourse. Ibuprofen or Aleve for pain control in the meantime. Follow-up with Dr. CARR. Reviewed with patient and/or family. Voiced understanding. Scripts Doxycycline Hyclate (Doxycycline Hyclate) 100 Mg Tablet 100 MG PO BID, #14 TAB 0 Refills Prov: BANDAR WILLIS APRN 12/08/18 Copy Copies To 1: JOSE ARMANDO CARR PETER J APRN Dec 08, 2018 14:50
[2018-12-08] MEDS ORDERED: IOHEXOL 350 MG/ML 100 ML (OMNIPAQUE 350) VIAL IV ONE (15:00)
[2018-12-08] MEDS ORDERED: NS 100 ML (IVPB) BAG IV ONE (15:00)
[2018-12-08] MEDS ORDERED: HOLD METFORMIN - RECEIVED CONTRAST 20 ML VIAL IV SCH (15:00)
[2018-12-08 15:01] LABS: BASOPHILS % (AUTO) 0 % (0-10); EOSINOPHILS # (AUTO) 0.2 10^3/uL (0.0-0.3); EOSINOPHILS % (AUTO) 2 % (0-10); HEMATOCRIT 41 % (35-52); HEMOGLOBIN 14.2 G/DL (11.5-16.0); LYMPHOCYTES # (AUTO) 2.6 X 10^3 (1.0-4.0); LYMPHOCYTES % (AUTO) 29 % (12-44); MEAN CORPUSCULAR HEMOGLOBIN 27 PG (25-34); MEAN CORPUSCULAR HGB CONC 35 G/DL (32-36); MEAN CORPUSCULAR VOLUME 78 FL (80-99); MONOCYTES # (AUTO) 0.8 X 10^3 (0.0-1.0); MONOCYTES % (AUTO) 9 % (0-12); NEUTROPHILS # (AUTO) 5.3 X 10^3 (1.8-7.8); NEUTROPHILS % (AUTO) 60 % (42-75); PLATELET COUNT 316 10^3/uL (130-400); WHITE BLOOD COUNT 8.9 10^3/uL (4.3-11.0)
[2018-12-08 15:05] LABS: BILIRUBIN,URINE NEGATIVE (NEGATIVE); CLARITY,URINE CLEAR; COLOR,URINE YELLOW; GLUCOSE, URINE (UA) NEGATIVE (NEGATIVE); KETONES,URINE NEGATIVE (NEGATIVE); LEUKOCYTE ESTERASE ,URINE NEGATIVE (NEGATIVE); NITRITE,URINE NEGATIVE (NEGATIVE); PH,URINE 5 (5-9); PROTEIN,URINE NEGATIVE (NEGATIVE); UROBILINOGEN,URINE NORMAL (NORMAL)
[2018-12-08 15:18] LABS: BACTERIA,URINE TRACE /HPF; RBC,URINE 25-50 /HPF; SQUAMOUS EPITHELIAL CELL,UR RARE /HPF
--- NOTE | 2018-12-08 15:55 | Diagnostic Imaging Report ---
PROCEDURE: CT abdomen and pelvis with contrast. TECHNIQUE: Multiple contiguous axial images were obtained through the abdomen and pelvis after administration of intravenous contrast. Auto Exposure Controls were utilized during the CT exam to meet ALARA standards for radiation dose reduction. INDICATION: Vaginal bleeding for three weeks. Painful intercourse. COMPARISON: 02/18/2018. FINDINGS: The lung bases are clear. The heart is normal in size. The liver demonstrates no focal lesions. The spleen, pancreas, adrenal glands and kidneys appear normal. The bowel loops are nondistended without obstruction. The appendix is normal. The urinary bladder is not significantly distended. No significant free air or free fluid is seen. There is a tampon within the vaginal canal. An intrauterine device is noted, and in expected position. No adnexal masses are appreciated. No acute osseous abnormality is seen. IMPRESSION: No acute abnormality is seen in the abdomen or pelvis. Dictated by: Dictated on workstation # [id number]
[2018-12-08] MEDS ORDERED: DOXY100T2 PO (16:17)
[2018-12-08 16:32] VITALS: BP 129/80
== END 2018-12-08 16:29 | disposition home or self-care (01) ==
LOC: EDUNIT# 14:28 → ER 14:29
DX: N93.9 Abnormal uterine and vaginal bleeding, unspecified (principal); N94.10 Unspecified dyspareunia
CPT/HCPCS: 36415; 74177; 81000; 84703; 85025; 87070; 87077; 87185; 87205; 87210; 87491; 87591

== ENCOUNTER 2018-12-31 20:32 | Emergency (ER) | payer OTHER ==
[~2018-12-31] VITALS: Ht 160 cm; Wt 77.1 kg
[~2018-12-31 20:32] MED LIST changes: +DOXY100T2 PO
[2018-12-31 21:10] LABS: BILIRUBIN,URINE NEGATIVE (NEGATIVE); CLARITY,URINE BLOODY; COLOR,URINE RED; GLUCOSE, URINE (UA) NEGATIVE (NEGATIVE); KETONES,URINE 1+ (NEGATIVE); LEUKOCYTE ESTERASE ,URINE 2+ (NEGATIVE); NITRITE,URINE NEGATIVE (NEGATIVE); PH,URINE 5 (5-9); PROTEIN,URINE 3+ (NEGATIVE); UROBILINOGEN,URINE NORMAL (NORMAL)
[2018-12-31 21:18] LABS: BACTERIA,URINE FEW /HPF; RBC,URINE TNTC /HPF; SQUAMOUS EPITHELIAL CELL,UR 0-2 /HPF
--- NOTE | 2018-12-31 21:33 | ED GU-Female ---
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 She was seen here two weeks ago with same complaints and had pelvic exam. She states cultures found an infection and was given prescription for doxycycline. She states she completed the medication but today the bleeding started back. She describes it as bright red blood in large amounts. patient [facility] also [facility] Patient has seen Dr. Andrade for these complaints. Nursing Sepsis Screen: No Definite Risk Source: patient, spouse Exam Limitations: no limitations History of Present Illness Date Seen by Provider: Dec 31, 2018 Time Seen by Provider: 21:15 Initial Comments Patient presents to the ER by private conveyance with his significant other chief complaint that today she started having some vaginal bleeding again. About 2-1/2 weeks ago she had this vaginal bleeding which she thought was very unusual because she was also having some pelvic pain. She came to the ER and was d iagnosed with some bacterial endometritis. She's been on doxycycline after a week or bleeding and symptoms resolved. She finished the antibiotics about for 5 days ago and now her bleeding started up again. She's had a , and has a copper T IUD in place. She had a vaginal exam and culture done by Dr. CARR outpatient after she was seen in the ER. No other abdominal surgeries. She says colitis runs in her family but she's had normal bowel movements with her last one being this afternoon normal formed. Her periods are typically every 28-30 days, regular lasting about for 5 days. She's in a monogamous relationship with no history of STDs. Allergies and Home Medications Allergies Coded Allergies: No Known Drug Allergies (Unverified , 11/23/17) Home Medications Amoxicillin/Potassium Clav 1 Each Tablet, 1 EACH PO BID Prescribed by: BANDAR WILLIS on 02/18/18 1635 B6/FA/B12/Co Q10/Herb No.225 1 Each Tablet, 1 EACH PO DAILY, (Reported) Biotin 1,000 Mcg Tablet, 1,000 MCG PO DAILY, (Reported) Docusate Sodium 100 Mg Capsule, 100 MG PO BID PRN for CONSTIPATION-1ST LINE Prescribed by: JOSE ARMANDO CARR on 11/23/17 1830 Doxycycline Hyclate 100 Mg Tablet, 100 MG PO BID Prescribed by: BANDAR WILLIS on 12/08/18 1617 Doxycycline Monohydrate 100 Mg Capsule, 100 MG PO BID Prescribed by: VALENTÍN BOBBY on 12/31/182239 Hydrocodone Bit/Acetaminophen 1 Tab Tab, 1-2 TAB PO Q4H PRN for PAIN-MODERATE Prescribed by: JOSE ARMANDO CARR on 11/23/171829 Hydrocodone Bit/Acetaminophen 1 Tab Tab, 1 EACH PO Q4-6HR PRN for PAIN-MODERATE Prescribed by: VALENTÍN BOBBY on 12/31/182239 Ibuprofen 600 Mg Tablet, 600 MG PO Q6H Prescribed by: JOSE ARMANDO CARR on 11/23/171829 Ondansetron 8 Mg Tab.rapdis, 8 MG PO Q6H PRN for NAUSEA/VOMITING-1ST LINE Prescribed by: BANDAR WILLIS on 02/18/18 163 Vit W-Ca,Fe,FA(<1 mg) 1 Each Tablet, 1 EACH PO DAILY, (Reported) Patient Home Medication List Home Medication List Reviewed: Yes Review of Systems Review of Systems Constitutional: No chills, No diaphoresis EENTM: No ear discharge, No ear pain Respiratory: No cough, No short of breath Cardiovascular: No chest pain, No edema Gastrointestinal: No abdominal pain, No constipation, No diarrhea Genitourinary: see HPI; denies burning, denies dysuria; hematuria : No Past Mxhawpr-Yxhxim-Swxbww Hx Patient Social History Alcohol Use: Occasionally Uses Recreational Drug Use: No Smoking Status: Never a Smoker 2nd Hand Smoke Exposure: No Recent Foreign Travel: No Contact w/Someone Who Travel: No Recent Infectious Disease Expo: No Recent Hopitalizations: No Immunizations Up To Date PED Vaccines UTD: Yes Seasonal Allergies Seasonal Allergies: No Past Medical History Surgeries: Yes (WISDOM TEETH 04/2016) Section Respiratory: No Cardiac: No Neurological: No Female Reproductive Disorders: Denies 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 0.0oz. [id number]; 29.8 BMI Method:Stated General Appearance: WD/WN, no apparent distress HEENT: PERRL/EOMI, pharynx normal Neck: full range of motion, normal inspection Cardiovascular: normal peripheral pulses, regular rate, rhythm, no edema Respiratory: no respiratory distress, no accessory muscle use Gastrointestinal: normal bowel sounds (active bowel sounds), non tender, soft, no organomegaly Genital/Rectal: other (normal appearing vaginal on's with some thin bloody secretions in the vaginal vault. No ulceration or obvious fistula noted. Cervix is normal in appearance anterior flexed and has the strings of the copper T presenting. ) Neurologic/Psychiatric: alert, normal mood/affect, oriented x 3 Skin: normal color, warm/dry Progress/Results/Core Measures Suspected Sepsis Recent Fever Within 48 Hours: No Infection Criteria Present: None New/Unexplained Altered Menta: No Sepsis Screen: No Definite Risk SIRS Temperature:99.5 Pulse: 83 Respiratory Rate: 16 Laboratory Tests 12/31/18 21:36: White Blood Count 12.8H Blood Pressure 127 /97 Mean: 107 Laboratory Tests 12/31/18 21:36: Creatinine 1.00, INR Comment 1.2, Platelet Count 329, Total Bilirubin 0.4 Results/Orders Lab Results Laboratory Tests Test 12/31/18 21:02 12/31/18 21:36 Range/Units Urine Color RED H Urine Clarity BLOODY H Urine pH 5 5-9 Urine Specific [place] 1.020 1.016-1.022 Urine Protein 3+ H NEGATIVE Urine Glucose (UA) NEGATIVE NEGATIVE Urine Ketones 1+ H NEGATIVE Urine Nitrite NEGATIVE NEGATIVE Urine Bilirubin NEGATIVE NEGATIVE Urine Urobilinogen NORMAL NORMAL MG/DL Urine Leukocyte Esterase 2+ H NEGATIVE Urine RBC (Auto) 5+ H NEGATIVE Urine RBC TNTC H /HPF Urine WBC 2-5 /HPF Urine Squamous Epithelial Cells 0-2 /HPF Urine Crystals NONE /LPF Urine Bacteria FEW H /HPF Urine Casts NONE /LPF Urine Mucus NEGATIVE /LPF Urine Culture Indicated YES White Blood Count 12.8 H 4.3-11.0 10^3/uL Red Blood Count 5.12 4.35-5.85 10^6/uL Hemoglobin 14.2 11.5-16.0 G/DL Hematocrit 40 35-52 % Mean Corpuscular Volume 78 L 80-99 FL Mean Corpuscular Hemoglobin 28 25-34 PG Mean Corpuscular Hemoglobin Concent 35 32-36 G/DL Red Cell Distribution Width 13.4 10.0-14.5 % Platelet Count 329 130-400 10^3/uL Mean Platelet Volume 10.3 7.4-10.4 FL Neutrophils (%) (Auto) 68 42-75 % Lymphocytes (%) (Auto) 22 12-44 % Monocytes (%) (Auto) 9 0-12 % Eosinophils (%) (Auto) 1 0-10 % Basophils (%) (Auto) 0 0-10 % Neutrophils # (Auto) 8.7 H 1.8-7.8 X 10^3 Lymphocytes # (Auto) 2.8 1.0-4.0 X 10^3 Monocytes # (Auto) 1.1 H 0.0-1.0 X 10^3 Eosinophils # (Auto) 0.1 0.0-0.3 10^3/uL Basophils # (Auto) 0.0 0.0-0.1 10^3/uL Prothrombin Time 15.2 H 12.2-14.7 SEC INR Comment 1.2 0.8-1.4 Activated Partial Thromboplast Time 31 24-35 SEC Sodium Level 142 135-145 MMOL/L Potassium Level 3.4 L 3.6-5.0 MMOL/L Chloride Level 107 98-107 MMOL/L Carbon Dioxide Level 22 21-32 MMOL/L Anion Gap 13 5-14 MMOL/L Blood Urea Nitrogen 12 7-18 MG/DL Creatinine 1.00 0.60-1.30 MG/DL Estimat Glomerular Filtration Rate > 60 BUN/Creatinine Ratio 12 Glucose Level 109 H 70-105 MG/DL Calcium Level 9.9 8.5-10.1 MG/DL Corrected Calcium 8.5-10.1 MG/DL Total Bilirubin 0.4 0.1-1.0 MG/DL Aspartate Amino Transf (AST/SGOT) 46 H 5-34 U/L Alanine Aminotransferase (ALT/SGPT) 25 0-55 U/L Alkaline Phosphatase 72 40-136 U/L C-Reactive Protein High Sensitivity 0.38 0.00-0.50 MG/DL Total Protein 8.1 6.4-8.2 GM/DL Albumin 4.8 H 3.2-4.5 GM/DL My Orders Orders - VALENTÍN BOBBY Ua Culture If Indicated (12/31/18 20:50) Urine Bedside (12/31/18 20:50) Urine Culture (12/31/18 21:02) Cbc With Automated Diff (12/31/18:27) Comprehensive Metabolic Panel (12/31/18:27) Hs C Reactive Protein (12/31/18:27) Protime With Inr (12/31/18:27) Partial Thromboplastin Time (12/31/18:27) Iv Heplock-Insert (Order) (12/31/18:27) Wet Prep (12/31/18:27) Genital Culture (12/31/18 22:33) Vital Signs/I&O 12/31/18 20:51 Temp 99.5 Pulse 83 Resp 16 B/P (MAP) 127/97 (107) Pulse Ox 97 O2 Delivery Room Air Capillary Refill : Less Than 3 Seconds Blood Pressure Mean: 107 Progress Note #1: Time: 21:37 Progress Note Reviewed the previous note from a couple weeks ago and the patient was covered with doxycycline for cervicitis and sent for follow-up with Dr. CARR for abnormal uterine bleeding. There are some suspicion that perhaps the copper T was causing but the patient says that she was reassured by Dr. CARR T was in good position. Plan to do a vaginal speculum exam wet prep and cervical culture. Suspect if she is having a repeat infection despite 2 weeks of doxycycline that there may be a fistula. If her labs are okay and she is stable we can set her up for outpatient follow-up with Dr. CARR for further diagnosis. We'll be fine to do another course of doxycycline. Ultrasound is not available this time. Progress Note #2: Time: 22:35 Progress Note Culture of the cervix obtain for outpatient follow-up. Wet prep obtained. If the wet prep is okay we'll put her back out on doxycycline coverage for the next couple weeks with follow-up with Dr. CARR. Suspect highly she has a fistula. She says her mother has Crohn's. She's had some blood in her stools in the past couple months. She needs colonoscopy apparently she was set up by Dr. CARR for [address] Watkins. She is not septic at this time and will continue out patient therapy. Wet prep was negative. Departure Impression Primary Impression: Cervicitis Disposition: HOME, SELF-CARE Condition: Stable Departure-Patient Inst. Decision time for Depature: 22:36 Referrals: ALVARADO WATKINS MICHAEL S DO (PCP/Family) Primary Care Physician Patient Instructions: Crohn's Disease (DC) Add. Discharge Instructions: I suspect that you might have underlying inflammatory colitis that could've caused a fistula or connection that is causing the recurrent bleeding and infection. We will cover you with antibiotics and have him follow-up outpatient with Dr. CARR. Keep your scheduled appointment for colonoscopy with Dr. Watkins. If you develop fevers, nausea vomiting or intractable pain that does not respond to heating pads, Tylenol or hydrocodone then you should return to the ER for further evaluation. Avoid the use of NSAIDs such as Naprosyn, Aleve, ibuprofen or Motrin as this may worsen colitis. All discharge instructions reviewed with patient and/or family. Voiced understanding. Scripts Doxycycline Monohydrate (Doxycycline Monohydrate) 100 Mg Capsule 100 MG PO BID for 14 Days, #28 CAP 0 Refills Prov: VALENTÍN BOBBY 12/31/18 Hydrocodone Bit/Acetaminophen (Hydrocodone/Acetaminophen 5/325mg Tablet) 1 Tab Tab 1 EACH PO Q4-6HR PRN for PAIN-MODERATE MDD 10 for 3 Days, #12 TAB 0 Refills Prov: VALENTÍN BOBBY 12/31/18 Copy Copies To 1: ALVARADO WATKINS TITUS J Dec 31, 2018 21:33
[2018-12-31 21:43] LABS: BASOPHILS % (AUTO) 0 % (0-10); EOSINOPHILS # (AUTO) 0.1 10^3/uL (0.0-0.3); EOSINOPHILS % (AUTO) 1 % (0-10); HEMATOCRIT 40 % (35-52); HEMOGLOBIN 14.2 G/DL (11.5-16.0); LYMPHOCYTES # (AUTO) 2.8 X 10^3 (1.0-4.0); LYMPHOCYTES % (AUTO) 22 % (12-44); MEAN CORPUSCULAR HEMOGLOBIN 28 PG (25-34); MEAN CORPUSCULAR HGB CONC 35 G/DL (32-36); MEAN CORPUSCULAR VOLUME 78 FL (80-99); MEAN PLATELET VOLUME 10.3 FL (7.4-10.4); MONOCYTES # (AUTO) 1.1 X 10^3 (0.0-1.0); MONOCYTES % (AUTO) 9 % (0-12); NEUTROPHILS # (AUTO) 8.7 X 10^3 (1.8-7.8); NEUTROPHILS % (AUTO) 68 % (42-75); PLATELET COUNT 329 10^3/uL (130-400); RED CELL DISTRIBUTION WIDTH 13.4 % (10.0-14.5); WHITE BLOOD COUNT 12.8 10^3/uL (4.3-11.0)
[2018-12-31 21:55] LABS: INR 1.2 (0.8-1.4); PROTHROMBIN TIME PATIENT 15.2 SEC (12.2-14.7)
[2018-12-31 22:02] LABS: ALANINE AMINOTRANSFERASE 25 U/L (0-55); ALBUMIN 4.8 GM/DL (3.2-4.5); ALKALINE PHOSPHATASE 72 U/L (40-136); BILIRUBIN,TOTAL 0.4 MG/DL (0.1-1.0); BUN/CREATININE RATIO 12; CALCIUM 9.9 MG/DL (8.5-10.1); CARBON DIOXIDE 22 MMOL/L (21-32); CHLORIDE 107 MMOL/L (98-107); GFR ESTIMATED > 60; GLUCOSE 109 MG/DL (70-105); POTASSIUM 3.4 MMOL/L (3.6-5.0); SODIUM 142 MMOL/L (135-145); TOTAL PROTEIN 8.1 GM/DL (6.4-8.2)
[2018-12-31] MEDS ORDERED: DOXY100C42 PO (22:40)
[2018-12-31] MEDS ORDERED: ACHD5005 PO (22:40)
[2018-12-31] MEDS ORDERED: RX-HYDROCODONE/APAP 5/325 MG #4 TAB PK PO PRN (22:45)
[2018-12-31 22:59] VITALS: BP 121/86
== END 2018-12-31 23:01 | disposition home or self-care (01) ==
LOC: EDUNIT# 20:32 → ER 20:33
DX: N72 Inflammatory disease of cervix uteri (principal); Z98.890 Other specified postprocedural states
CPT/HCPCS: 36415; 80053; 81000; 84703; 85025; 85610; 85730; 86141; 87070; 87077; 87088; 87185; 87205; 87210

== ENCOUNTER 2019-01-21 09:15 | Outpatient (CLI) | payer OTHER ==
[~2019-01-21] VITALS: Ht 160 cm; Wt 77.1 kg
[~2019-01-21 09:15] MED LIST changes: +DOXY100C42 PO
[2019-01-21] MEDS ORDERED: LEVO25TA5 PO (09:28)
== END 2019-01-21 10:16 | disposition home or self-care (01) ==
LOC: PREOP 09:15
PROVIDERS: ATTEND Surgery
DX: Z01.818 Encounter for other preprocedural examination (principal); K62.5 Hemorrhage of anus and rectum

== ENCOUNTER 2019-01-22 11:05 | Day surgery (SDC) | payer BC, OTHER ==
[~2019-01-22] VITALS: Ht 160 cm; Wt 77.1 kg
[~2019-01-22 11:05] MED LIST changes: +LEVO25TA5 PO
[2019-01-22 11:10] VITALS: BP 124/74
[2019-01-22] MEDS ORDERED: LACTATED RINGERS 1,000 ML IV ONE (11:11)
[2019-01-22] MEDS ORDERED: LACTATED RINGERS 1,000 ML IV STA (11:15)
--- NOTE | 2019-01-22 11:42 | Progress Note-Pre Operative ---
Pre-Operative Progress Note H&P Reviewed The H&P was reviewed, patient examined and no changes noted. Date Seen by Provider: Jan 22, 2019 Time Seen by Provider: 11:42 Date H&P Reviewed: Jan 22, 2019 Time H&P Reviewed: 11:42 Pre-Operative Diagnosis: bright red blood per rectum, anal fissure ALVARADO WATKINS DO Jan 22, 2019 11:42
[2019-01-22] MEDS ORDERED: MIDAZOLAM 2 MG/2 ML (VERSED) VIAL ONE (12:39)
[2019-01-22] MEDS ORDERED: PROPOFOL INJECTION 50 ML IV ONE (12:39)
[2019-01-22 13:35] VITALS: BP 98/62
--- NOTE | 2019-01-22 13:39 | Progress Note-Post Operative ---
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
[2019-01-22 13:40] VITALS: BP 102/57
--- NOTE | 2019-01-22 13:41 | Discharge Inst-Simple/Standard ---
Discharge Inst-Standard Patient Instructions/Follow Up Plan of Care/Instructions/FU: f/u with Dr. Tadeo on as needed basis. If return of bleeding be seen at that time. Activity as Tolerated: Yes Discharge Diet: Regular Diet (high fiber) ALVARADO TADEO DO Jan 22, 2019 13:41
[2019-01-22 14:10] VITALS: BP 109/70
[2019-01-22 14:43] VITALS: BP 109/70
--- NOTE | 2019-01-22 15:35 | Anesthesia-General Post-Op ---
MAC Patient Condition Mental Status/LOC: Same as Preop Cardiovascular: Satisfactory Nausea/Vomiting: Absent Respiratory: Satisfactory Pain: Controlled Complications: Absent Post Op Complications Complications None Follow Up Care/Instructions Patient Instructions None needed. Anesthesiology Discharge Order Discharge Order Patient was seen after the procedure and she was doing well, no complaints, stable vital signs, no apparent adverse anesthesia problems. ALBERTO LI DO Jan 22, 2019 15:35
--- NOTE | 2019-01-22 16:08 | OPERATIVE REPORT ---
DATE OF SERVICE: 01/22/2019 PREOPERATIVE DIAGNOSES: Bright red blood per rectum, anal fissure. POSTOPERATIVE DIAGNOSIS: Normal colon. PROCEDURE: Colonoscopy. ANESTHESIA: Per PULVI MIXER OPERATOR. ESTIMATED BLOOD LOSS: None. COMPLICATIONS: None. INDICATIONS: The patient is a 23-year-old female with bright red blood per rectum. She was also found to have a small anal fissure. She understands risks and benefits of procedure and wished to proceed with procedure. Consent was signed in the chart. DESCRIPTION OF PROCEDURE: The patient was taken to the endoscopy suite, placed in left lateral recumbent position. Timeout was performed. Digital rectal exam was performed. No fissure. No palpable polyps, masses or ulcerations. Scope was inserted in the rectum and advanced all the way to the cecum with minimal difficulty. Prep was adequate. Scope was then slowly retracted back. There were no polyps, masses or ulcerations within the cecum, ascending, transverse, descending and sigmoid colon. Once in the rectum, scope was tend to be retroflexed, but was narrow. Therefore, multiple insertions and retractions were made, noting no other pathology. Scope was then slowly withdrawn until completely removed. The patient tolerated procedure well without any complications. She was taken to recovery room in stable condition. RECOMMENDATIONS: The patient instructed a high fiber diet to keep stools soft. If she has any return of bleeding, she should be reevaluated at that time. Otherwise, the patient will need repeat colonoscopy per routine guidelines. Job ID: [id number] DocumentID: [id number] Dictated Date: 01/22/2019 13:43:05 Angiography Technologist Date: 01/22/2019 16:08:05 Dictated By: ALVARADO WATKINS DO
== END 2019-01-22 14:43 | disposition home or self-care (01) ==
LOC: ENDO 11:05
PROVIDERS: ATTEND Surgery
DX: K62.5 Hemorrhage of anus and rectum (principal); K60.0 Acute anal fissure; N93.9 Abnormal uterine and vaginal bleeding, unspecified; Z87.891 Personal history of nicotine dependence; Z79.899 Other long term (current) drug therapy; Z79.891 Long term (current) use of opiate analgesic; Z82.49 Family history of ischemic heart disease and other diseases of the circulatory system; Z83.3 Family history of diabetes mellitus; Z80.8 Family history of malignant neoplasm of other organs or systems; Z84.1 Family history of disorders of kidney and ureter
CPT/HCPCS: 84703